=== PATIENT | female | born 1950 | race Caucasian/White ===

== ENCOUNTER 2023-03-11 15:45 | Emergency (ER) | payer MEDICARE, SELFPAY ==
[2023-03-11 15:55] VITALS: BP 142/80; PULSE 91; RESP 20; TEMP 36.6; O2SAT 96
--- NOTE | 2023-03-11 16:01 | ED.SKABFB ---
HPI - Skin/Abscess/Foreign Bdy General Chief complaint: Skin/Abscess/Foreign Body Stated complaint: Insect Bite History of Present Illness HPI narrative: patient here for wound evaluation. patient was treated by PCP with 10 days of doxy and triamcinolone cream. Patient completed doxy 4 days ago and presents today due to itching to area. no drainage patient has not appliey any steroid cream to area. patient called her pcp and was instructed to have the wound re evaluated Related Data Home Medications Medication Instructions Recorded Confirmed amlodipine 5 mg tablet 5 mg PO DAILY 03/11/23 03/11/23 buspirone 15 mg tablet 15 mg PO DAILY 03/11/23 03/11/23 duloxetine 20 mg capsule,delayed 20 mg PO DAILY 03/11/23 03/11/23 release isosorbide mononitrate 30 mg 30 mg PO QAM 03/11/23 03/11/23 tablet,extended release 24 hr levothyroxine 50 mcg tablet 50 mcg PO DAILY 03/11/23 03/11/23 losartan 100 mg tablet 100 mg PO DAILY 03/11/23 03/11/23 pioglitazone 15 mg tablet 15 mg PO DAILY 03/11/23 03/11/23 tramadol 50 mg tablet 50 mg PO Q8-10H PRN Pain (Scale 03/11/23 03/11/23 Score 4-6) triamcinolone acetonide 0.1 % applic topical 03/11/23 topical cream Allergies Allergy/AdvReac Type Severity Reaction Status Date / Time codeine Allergy Difficulty Verified 03/11/23 16:13 Breathing ibuprofen [From Motrin] Allergy Difficulty Verified 03/11/23 16:14 Breathing Penicillins Allergy Rash Verified 03/11/23 16:13 Sulfa (Sulfonamide Allergy Difficulty Verified 03/11/23 16:13 Antibiotics) Breathing ALEEVE Allergy Difficulty Uncoded 03/11/23 16:14 Breathing ANTIHISTAMINES Allergy Difficulty Uncoded 03/11/23 16:13 Breathing DECONGESTANTS Allergy Difficulty Uncoded 03/11/23 16:13 Breathing Review of Systems Review of Systems: CONSTITUTIONAL: Denies fever, chills, or sweats. EYES: Denies visual changes, redness, or discharge. ENT: Denies rhinorrhea, congestion, sore throat, or otalgia. CARDIOVASCULAR: Denies chest pain, palpitations, or edema. RESPIRATORY: Denies cough or dyspnea. GASTROINTESTINAL: Denies abdominal pain, nausea, vomiting, or diarrhea. GENITOURINARY: Denies dysuria or hematuria. SKIN: Denies rash or itching. MUSCULOSKELETAL: Denies back pain, joint pain, or myalgia. NEUROLOGIC: Denies headache, numbness, or weakness. PSYCHIATRIC: Denies anxiety or depression. Exam Narrative: GENERAL: Well-appearing, well-nourished, and in no acute distress. HEAD: Normocephalic, atraumatic. EYES: PERRLA and EOMI. ENT: Nares clear, no rhinorrhea or epistaxis. Mucous membranes moist. NECK: Supple. CHEST: Clear to auscultation. No respiratory distress. HEART: Regular rate and rhythm. No murmur heard. Normal peripheral pulses. ABDOMEN: Soft, nontender, nondistended, normal active bowel sounds. EXTREMITIES: Normal range of motion. No edema. SKIN: Warm, dry, no rash.right upper back area consistent with healing insect bite no concern for cellulitis NEURO: No focal deficits. Alert and oriented x3. [place] Coma Scale Eye Opening: Spontaneous 4 [place] Coma Scale Motor: Obeys Commands 6 Shereen Coma Scale Verbal: Oriented 5 Shereen Coma Scale Total 15 Course Course Level of Care: Express Care Visit Discharge Plan Discharge Clinical Impression: Insect bites Patient Disposition: Home, Self-Care Condition: Stable Instructions: Antibiotic Form, Insect Bite or Sting (ED), Tick Bite (ED) Additional Instructions: Apply triamcinolone cream as prescribed by primary care provider Zyrtec, Claritin or Xyzal daily for itch Use mupirocin ointment as prescribed Follow-up with primary care provider in 2-3 days as needed for re-evaluation If any new or worsening symptoms please go the emergency room immediately further evaluation treatment Prescriptions: New mupirocin 2 % ointment 1 applic TOPICAL TID 7 Days Qty: 15 0RF No Action pioglitazone 15 mg tablet 15 mg PO MAYO
[2023-03-11 16:14] VITALS: BP 142/80; PULSE 91; RESP 20; TEMP 36.6; O2SAT 96
== END 2023-03-11 16:17 | disposition home or self-care (01) ==
PROVIDERS: Emergency Provider Nurse Practitioner Family; PCP Internal Medicine
DX: S20.461D Insect bite (nonvenomous) of right back wall of thorax, subsequent encounter (principal); W57.XXXD Bitten or stung by nonvenomous insect and other nonvenomous arthropods, subsequent encounter
CPT/HCPCS: 99213; G0463